=== PATIENT | female | born 1995 ===

== ENCOUNTER 2024-02-17 09:06 | Emergency (ER) | payer BC, SELFPAY ==
[2024-02-17 09:07] VITALS: BP 125/80
[2024-02-17] MEDS: NSS 1000 IV (10:05)
[2024-02-17] MEDS: TORADOL 15 MG IV (10:05)
[2024-02-17 10:17] LABS: % Basophils 0.7 % (0-2); % Eosinophils 0.8 % (0-6); % Immature Granulocytes 0.2 % (0-0.5); % Lymphocytes 32.5 % (20.5-51.1); % Monocytes 5.9 % (1.7-9.3); % Neutrophils 59.9 % (42.2-75.2); Absolute Eosinophils 0.1 10^3/uL (0-0.7); Absolute Lymphocytes 1.9 10^3/uL (1.2-3.4); Absolute Monocytes 0.4 10^3/uL (0.1-0.6); Absolute Neutrophils 3.6 10^3/uL (1.4-6.5); Hematocrit 37.8 % (37.0-47.0); Hemoglobin 13.4 g/dL (12.0-16.0); Mean Corp Hgb Conc. 35.4 g/dL (33.0-37.0); Mean Corpuscular Hgb 30.6 pg (27.0-31.0); Mean Corpuscular Volume 86.3 fL (81.0-99.0); Mean Platelet Volume 10.1 fL (7.4-10.4); Nucleated Red Blood Cells % 0 %; Platelet Count 232 10^3/uL (130-400); Red Blood Cell Count 4.38 10^6/uL (4.20-5.40); Red Cell Dist. Width 12.7 % (11.5-14.5); Urine Albumin Negative (Neg - Trace); Urine Bilirubin Negative (Negative); Urine Character Clear (Clear); Urine Color Yellow; Urine Glucose Negative (Negative); Urine Ketone 2+ (Negative); Urine Leukocyte Negative (Negative); Urine Nitrite Negative (Negative); Urine Occult Blood Negative (Negative); Urine Specific Gravity 1.015 (<1.030); Urine Urobilinogen Negative (Neg - 1+); White Blood Cell Count 5.9 10^3/uL (4.8-10.8)
[2024-02-17 10:20] LABS: HCG, Urine Qualitative Screen Negative
[2024-02-17 10:27] LABS: ALT (SGPT) 11 U/L (0-35); AST (SGOT) 14 U/L (14-36); Albumin 3.9 g/dl (3.5-5.0); Alkaline Phosphatase 70 U/L (38-126); Blood Urea Nitrogen 9 mg/dl (7-17); Calcium 9.1 mg/dl (8.4-10.2); Carbon Dioxide 24 mmol/L (22-30); Chloride 108 mmol/L (98-107); Glucose 85 mg/dl (70-99); Lipase 47 U/L (23-300); Potassium 3.7 mmol/L (3.5-5.1); Sodium 139 mmol/L (135-145); Total Bilirubin 0.6 mg/dl (0.2-1.3); Total Protein 6.8 g/dl (6.3-8.2); eGFR > 60.00
[2024-02-17 11:52] LABS: Erythrocyte Sed Rate 9 mm/hour (0-20)
[2024-02-17 12:18] LABS: C-Reactive Protein < 5.00 mg/L (0.0-10.00)
[2024-02-17 12:22] VITALS: BP 113/71
--- NOTE | 2024-02-17 12:30 | ED.GENMED ---
History of Present Illness
General
Chief Complaint: Abdominal Pain
Source: patient
Exam Limitations: none
Time Seen by Provider: 02/17/24 09:12
Travel History
Have you had any contact with someone who has COVID-19?: No
Do you have any symptoms of coronavirus? Fever > 100 degrees, chills, cough, shortness of breath, sore throat, loss of taste or smell, muscle aches, or headache?: No
History of Present Illness
History of Present Illness:
28-year-old female who has had symptoms for about 2 months. The patient states she has had intermittent vomiting, diarrhea and nausea. She also has had intermittent abdominal discomfort. Today she did have worsening pain that has now resolved.
On my evaluation she states her pain has improved significantly and she is not very nauseous. No fevers. No dysuria. No abnormal vaginal bleeding. No back pain. No injury. Patient does use THC daily at night. She uses this for migraines.
Past History
Past History
ED Past Medical History: None
Social History
Tobacco: Non-smoker
Phy Exam
Physical Exam
Physical Exam:
CONSTITUTIONAL Patient alert and oriented to person, place and time. Well-appearing. Vital signs reviewed.
HEAD atraumatic, normocephalic.
EYES eyelids normal to inspection, Pupils equally round and reactive to light, Extraocular muscles intact, Conjunctiva normal, Sclera normal.
NECK normal range of motion, Trachea midline, no jugular venous distention.
RESPIRATORY CHEST No respiratory distress noted, Chest expansion equal, Bilateral breath sounds clear.
CARDIOVASCULAR regular rate and rhythm, Heart sounds normal.
ABDOMEN very soft, no distention, normal bowel sounds, no focal tenderness, mild diffuse tenderness.
BACK normal inspection, no obvious deformities
UPPER EXTREMITY range of motion normal, Motor strength normal, no cyanosis, no edema.
LOWER EXTREMITY range of motion normal, Motor strength normal, no cyanosis, no edema.
NEURO Speech normal, No focal motor deficits, Joseph coma scale 15, Memory normal, Cranial Nerves intact to screening exam.
SKIN skin warm, dry, and normal in color.
PSYCHIATRIC patient oriented to person place and time, Normal affect.
Course
Orders/Labs/Results
Orders:
Orders
02/17/24 09:16
Test Result ONCE
02/17/24 09:32
0.9% Sodium Chloride 1000 ml [Nss] 1,000 ml IV BOLUS
Ketorolac [Toradol] 15 mg IV NOW STA
02/17/24 09:57
C-Reactive Protein Urgent
Comment: ADD ON
Complete Blood Count/With Diff Urgent
Comprehensive Metabolic Panel Urgent
Erythrocyte Sed Rate Urgent
Comment: ADD ON
HCG, Urine Qualitative Screen Urgent
Date Specimen was Collected: 02/17/24
Time Specimen was Collected: 09:43
Lipase Urgent
Urinalysis Reflex To Culture Urgent
Date Specimen was Collected: 02/17/24
Time Specimen was Collected: 09:43
02/17/24 11:06
Abdomen Xray - 1 View [CR Abdomen - 1 View] Urgent
Comment:
Reason For Exam: vomiting, abd pain
02/17/24 11:10
Add On- LAB Urgent
Tests Added?: ESR, CRP
02/17/24 12:38
Ondansetron Injectable [Zofran] 4 mg IV NOW STA
02/17/24 12:42
Ondansetron Injectable [Zofran] 4 mg IV NOW STA
Abnormal Lab Results
02/17/24
09:57
Chloride 108 H mmol/L
(98-107)
Urine Ketones 2+ A
(Negative)
02/17/24 09:57
02/17/24 09:57
Vital Signs
Initial and Last Documented VS:
Initial Vital Signs
Temp Pulse Resp BP Pulse Ox
98.1 F 98 18 125/80 100
02/17/24 09:07 02/17/24 09:07 02/17/24 09:07 02/17/24 09:07 02/17/24 09:07
Last Documented Vital Signs
Temp Pulse Resp BP Pulse Ox
98.1 F 70 17 113/71 100
02/17/24 09:07 02/17/24 12:22 02/17/24 12:22 02/17/24 12:22 02/17/24 12:22
MDM/Problems Addressed
MDM/Problems Addressed:
Abdominal pain, possible cannabinoid hyperemesis syndrome
*Radiology
Radiology exam reviewed: all reviewed NAD by ED Provider
*Pulse Oximetry
Patient hypoxic: no
*Critical Care Note
Total Time (30-74mins, 75-104mins- exclusive of procedures): Not Applicable
Data Reviewed
Source: patient
Further Testing Considered But Not Given:
Considered CT but patient has had symptoms for months and her white count, inflammatory markers and exam are benign.
Patient Management
Escalation/DeEscalation of care consider admission/obs:
Patient appears very well. No focal tenderness. Labs normal despite symptoms for extended period of time. Imaging not necessary at this time but does need outpatient follow-up. Recommended GI follow-up for the consideration of colonoscopy and
endoscopy. Patient agrees. I also discussed the possibility of cannabinoid hyperemesis syndrome. The patient will consider stopping
ED Attending Note
-
Portions of this chart may have been created with voice recognition software.� Occasional wrong word or��sound alike� substitutions may have occurred due to the inherent limitations of voice recognition software.
Discharge Plan
Departure
Patient Disposition: Home (Routine Discharge)
Date of Disposition: 02/17/24
Time of Disposition: 12:42
Patient with high blood pressure during this ER visit?: No
Discharge Problem:
Abdominal pain, Nausea & vomiting
Instructions: Nausea and Vomiting, Adult (DC), Abdominal Pain
Prescriptions:
New
dicyclomine 20 mg tablet
20 mg PO TID PRN (Reason: abdominal pain) Qty: 20 0RF
ondansetron 4 mg tablet,disintegrating
4 mg PO TIDPRN PRN (Reason: nausea/vomiting) Qty: 20 0RF
No Action
ondansetron [Zofran ODT] 8 MG tablet,disintegrating
8 mg PO TID PRN (Reason: nausea/vomiting) Qty: 20 0RF
ketorolac 10 MG tablet
10 mg PO Q6HPRN PRN (Reason: pain) Qty: 20 0RF
tamsulosin [Flomax] 0.4 MG capsule
0.4 mg PO DAILY Qty: 14 0RF
oxycodone 5 MG tablet
5 mg PO Q4HPRN PRN (Reason: pain) Qty: 10 0RF
Referrals:
Frieda Corral MD [Family Provider] -
Activity Restrictions/Additional Instructions:
Please see your doctor in follow-up in the next 3 to 5 days. If symptoms persist, colonoscopy and/or endoscopy may be warranted. Return immediately for intractable vomiting, fevers, worsening pain or any other concerns.
Interventions
Interventions:
*Risk Screen - Suicide Last Done: 02/17/24 10:00
*Neglect/Abuse Screening Last Done: 02/17/24 10:00
ED- Fall Risk Assessment Last Done: 02/17/24 10:00
*ED COVID-19 Vaccine History Last Done: 02/17/24 09:07
*Nursing Disposition Last Done: 02/17/24 13:19
PR-Xcyohd-Uzeqigiejq Assessment Last Done: 02/17/24 10:00
Discharge Date and Time
Discharge Date/Time: 02/17/24 13:19
Print Language: NAMIBIAN
[2024-02-17] MEDS: ZOFRAN 4 MG IV (12:56)
== END 2024-02-17 13:19 | disposition home or self-care (01) ==
LOC: EMR 09:06
PROVIDERS: EMERGENCY PHYSICIAN Emergency Medicine; FAMILY PHYSICIAN Family Medicine
DX: R11.2 Nausea with vomiting, unspecified (principal); R10.9 Unspecified abdominal pain; R19.7 Diarrhea, unspecified
CPT/HCPCS: 99284; 96374; 96375; 96361; 74018; 80053; 81003; 81025; 83690; 85025; 85652; 86140

== ENCOUNTER → 2024-03-03 07:18 | Outpatient (REF) | payer BC, SELFPAY | LOC: HWRAD 07:18 | PROVIDERS: ATTENDING PHYSICIAN Family Medicine | DX: R19.7 Diarrhea, unspecified (principal); R11.0 Nausea; R10.84 Generalized abdominal pain | CPT/HCPCS: 74177; Q9967 ==